=== PATIENT | male | born 1985 | race African-American/Black ===

== ENCOUNTER 2017-03-22 07:19 | Emergency (ER) | payer SELFPAY ==
[2017-03-22] MEDS ORDERED: cefTRIAXone\\ROCEPHIN 250 MG VIAL ONE (08:06)
[2017-03-22] MEDS ORDERED: Azithromycin 250 MG TAB ONE (08:06)
[2017-03-22] MEDS ORDERED: Lidocaine 1% 20 ML MDV ONE (08:06)
[2017-03-25 11:19] LABS: Chlamydia by PCR Not Detected (NotDetected); GC by PCR DETECTED (NotDetected)
== END 2017-03-22 08:28 | disposition home or self-care (01) ==
LOC: MADERS 07:19
DX: Z20.2 Contact with and (suspected) exposure to infections with a predominantly sexual mode of transmission (principal); F41.9 Anxiety disorder, unspecified
CPT/HCPCS: 87491; 87591; 96372; J0696; J2001